=== PATIENT | male | born 1990 | race Caucasian/White ===

== ENCOUNTER 2023-04-04 11:09 | Emergency (ER) | payer MEDICAID, SELFPAY ==
[2023-04-04 11:11] VITALS: BP 123/99; PULSE 59; RESP 14; TEMP 36.1; O2SAT 99; BMI 30.7
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
== END 2023-04-04 12:46 | disposition home or self-care (01) ==
PROVIDERS: Emergency Provider Emergency Medicine; PCP Pediatrics; Visit Provider Emergency Medicine
DX: S20.20XA Contusion of thorax, unspecified, initial encounter (principal); F17.210 Nicotine dependence, cigarettes, uncomplicated; V86.56XA Driver of dirt bike or motor/cross bike injured in nontraffic accident, initial encounter; Y93.55 Activity, bike riding
CPT/HCPCS: 71101; 99282